=== PATIENT | female | born 2000 | race Caucasian/White ===

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

== ENCOUNTER 2019-02-26 11:35 | Emergency (ER) | payer MEDICAID, SELFPAY ==
--- NOTE | 2019-02-26 11:39 | ED.GENADUL_ITS ---
Discharge Plan Disposition Patient Disposition: HOME Condition: Stable Discharge Details Chief Complaint: Sorethroat Clinical Impression: Viral syndrome, Sore throat Primary Care Provider: Justin Eric ED Provider: Alivia Sharpe Home Meds and New Rx's Prescriptions: New amoxicillin 500 mg capsule 500 mg PO BID 10 Days Qty: 20 RF: 0 Discharge Instructions Instructions: Pharyngitis (ED), Viral Syndrome (ED) Additional Instructions: Drink plenty of fluids and get plenty of rest. Alternate tylenol and motrin as needed and directed for pain. Follow-up with your primary care doctor in 1 week. Return to the emergency department with any worsening or new concerning symptoms. Stand Alone Forms: Work Release Discharge Data Discharge Physician: Alivia Sharpe Medical Decision Making 18-year-old female presents with body aches, sore throat since early this morning. Denies known fever but does admit to chills. Patient appears generally fatigued and uncomfortable but nontoxic. Heart rate 102. Afebrile. Normal TMs bilaterally. Bilateral tonsillar edema significant but uvula midline without any evidence of peritonsillar mass. No exudates noted. Bilateral tender anterior cervical lymphadenopathy. Lungs clear. No submandibular swelling. No drooling. No trismus. Rapid strep and rapid influenza negative. Discussed with patient that the differential diagnosis can include viral syndrome, mono, viral pharyngitis, or another type of bacterial pharyngitis. She has regular periods and denies chance of . As patient had significant tonsillar edema, dose of Decadron as well as Motrin given. We will also give a prescription for amoxicillin to start if her symptoms do not improve or worsen over the next few days. Advised to follow up with the primary care doctor for re-evaluation. Usual and customary return precautions given prior to discharge. HPI General Mode of arrival: ambulatory . Date/Time Provider Initiated Documentation: 02/26/19 11:39 . Limitations to Documentation: no limitations . Information obtained by: patient . History of Present Illness 18 year old F presents to the emergency department with the chief complaint of sore throat and bodyaches, described as moderate, Patient started experiencing this day(s) (1) No relieving factors improve symptom(s), No exacerbating factors reported . Patient notes cough, fever/chills, headaches, loss of appetite and malaise; denies nausea/vomiting, rash, seizure, shortness of breath, syncope and weakness. Patient did receive the following treatments prior to arrival, none Related Data Home Medications Medication Instructions Recorded Confirmed amoxicillin 500 mg PO BID 10 Days #20 cap 02/26/19 Previous Rx's Medication Instructions Recorded amoxicillin 500 mg PO BID 10 Days #20 cap 02/26/19 Allergies Allergy/AdvReac Type Severity Reaction Status Date / Time doxycycline Allergy Verified 02/26/19 11:53 General CHAU: 4 Review of Systems All systems reviewed & are unremarkable except as noted in HPI and below Constitutional Constitutional: Reports as per HPI, Reports body ache(s), Reports chills and Denies fever(s) Eyes Eyes: Denies blurry vision ENT Ears, Nose, Mouth, and Throat: Denies dizziness, Reports sore throat and Denies throat swelling Cardiovascular Cardiovascular: Denies chest pain and Denies dyspnea Respiratory Respiratory: Denies cough and Denies dyspnea Gastrointestinal Gastrointestinal: Denies abdominal pain, Denies diarrhea and Denies vomiting Genitourinary Genitourinary: Denies hematuria and Denies dysuria Musculoskeletal Musculoskeletal: Denies back pain and Denies numbness Integumentary/Breasts Skin/Breast: Denies lesions and Denies rash Neurologic Neurologic: Denies dizziness, Denies focal weakness and Denies numbness Allergic/Immunologic Allergic/Immunologic: Denies throat swelling [facility] Medical History No significant past medical history (Acute) Surgical History History of ankle surgery (Acute) Social History Smoking/Tobacco Use Status: Never Alcohol Intake: never Drug use: Never Do you feel safe at home: Yes Do you feel safe in your relationship?: Yes Exam Const General: cooperative and healthy appearing Orientation: alert and awake [facility] Head: normal to inspection Ears: hearing grossly normal bilaterally, external ears normal and TM's normal bilaterally General nose exam: external nose normal Face and sinus: normal facial exam Mouth: oral mucosae normal Teeth and gingiva: dentition normal Throat: posterior oropharynx abnormal edema (moderate to significant b/l tonsillar edema) and erythema Eyes General: appearance normal, both eyes and all related structures Eyelids: eyelids normal Pupils: PERRL EOM: EOM intact bilaterally Neck Neck: normal visual inspection and lymphadenopathy (tender b/l anterior cervical ) Lymphatic: no lymphadenopathy noted Chest Chest: normal inspection of the chest Resp Effort & Inspection: normal respiratory effort and able to speak in complete sentences Auscultation: clear to auscultation bilaterally Cardio Rate: regular rate Rhythm: regular rhythm GI Inspection: normal to inspection Palpation: soft, not firm, no guarding, no hepatosplenomegaly, no masses and nontender Auscultation: normal bowel sounds Skin General skin exam: no rashes or lesions noted Neuro General: alert and awake Cognition: normal cognition Speech: speech normal Gait: normal gait Motor: muscle tone normal throughout Sensory Exam: no sensory deficits noted Extrem General: normal to inspection, full ROM and normal capillary refill Psych Appearance: grossly normal Mental Status: mental status grossly normal Speech and Movement: speech and movement normal Affect: normal affect Thought Process: normal
[2019-02-26 11:49] VITALS: BP 135/106; PULSE 102; RESP 16; TEMP 36.8; O2SAT 99
[2019-02-26] MEDS: Ibuprofen 600 MG TAB PO (12:47)
[2019-02-26] MEDS: Dexamethasone 10 MG/ML VIAL PO (12:47)
== END 2019-02-26 13:35 | disposition home or self-care (01) ==
PROVIDERS: Emergency Provider Physician Assistant; PCP Pediatrics
DX: J02.8 Acute pharyngitis due to other specified organisms (principal); M79.10 Myalgia, unspecified site; R53.83 Other fatigue; B34.9 Viral infection, unspecified
CPT/HCPCS: 87449; 87880; 99283; 87081; J1100